=== PATIENT | female | born 1960 | race Caucasian/White ===

== ENCOUNTER 2016-06-25 08:00 | Outpatient (RCR) | payer SELFPAY ==
[2016-06-24 12:33] VITALS: BP 133/88; PULSE 81; TEMP 97.4
[~2016-06-25] VITALS: Ht 160 cm; Wt 48.0 kg
[~2016-06-25 08:00] MED LIST: ALAVERT10 M1 PO; CELEXA10 MG PO; NORCO 325 MG-51 TAB PO; PERCOCET 325 MG1 TA2 PO
[2016-06-25] MEDS ORDERED: NEURONTIN300 MG/CAP PO (08:01)
[2016-06-25] MEDS ORDERED: VALIUM 2MG T2 MG/TAB UR (08:02)
[2016-06-25 08:05] VITALS: BP 114/53; PULSE 84; TEMP 97.4
== END 2016-06-25 12:15 | disposition home or self-care (01) ==
LOC: EUO 08:00
DX: G35 Multiple sclerosis (principal)
CPT/HCPCS: J2930; J7050

== ENCOUNTER 2016-09-16 06:36 | Day surgery (SDC) | payer SELFPAY ==
[~2016-09-16] VITALS: Ht 160 cm; Wt 49.5 kg
[~2016-09-16 06:36] MED LIST changes: +NEURONTIN300 MG/CAP PO; +VALIUM 2MG T2 MG/TAB UR
[2016-09-16 07:12] VITALS: BP 119/57; PULSE 69; TEMP 98
[2016-09-16] MEDS ORDERED: ESTRING0.0075 MG/ VG (07:19)
[2016-09-16] MEDS ORDERED: ZINBRYTA150 MG/1 M SQ (07:19)
[2016-09-16] MEDS ORDERED: HORIZANT300 MG PO (07:20)
[2016-09-16] MEDS ORDERED: STOOL SOFTENER100 M2 PO (07:21)
[2016-09-16] MEDS ORDERED: EXCEDRIN TENSIO1 TAB PO (07:21)
[2016-09-16 08:20] VITALS: BP 124/66; PULSE 75; TEMP 98.4
[2016-09-16 08:35] VITALS: BP 106/66; PULSE 64
[2016-09-16 08:50] VITALS: BP 122/65; PULSE 65
[2016-09-16 09:44] VITALS: BP 130/73; PULSE 94
== END 2016-09-16 09:00 | disposition home or self-care (01) ==
LOC: SDCO 06:36
DX: K21.0 Gastro-esophageal reflux disease with esophagitis (principal); K22.70 Barrett's esophagus without dysplasia
CPT/HCPCS: OP; J2250; J2405; J3010; J7030

== ENCOUNTER → 2018-06-28 | Outpatient (CLI) | payer SELFPAY ==
[~2018-06-28] MED LIST changes: +ESTRING0.0075 MG/ VG; +EXCEDRIN TENSIO1 TAB PO; +HORIZANT300 MG PO; +STOOL SOFTENER100 M2 PO; +ZINBRYTA150 MG/1 M SQ
== END ==
LOC: COL.CARD 09:40
DX: R56.9 Unspecified convulsions (principal)